=== PATIENT | male | born 1950 | race Caucasian/White ===

== ENCOUNTER → 2023-11-30 14:18 | Outpatient (REF) | payer MEDICARE, BC, SELFPAY ==
[2023-11-30 15:28] LABS: % Basophils 1.3 % (0-2); % Eosinophils 3.3 % (0-6); % Immature Granulocytes 0.3 % (0-0.5); % Lymphocytes 27.1 % (20.5-51.1); % Monocytes 11.6 % (1.7-9.3); % Neutrophils 56.4 % (42.2-75.2); Absolute Basophils 0.1 10^3/uL (0-0.2); Absolute Eosinophils 0.2 10^3/uL (0-0.7); Absolute Lymphocytes 1.6 10^3/uL (1.2-3.4); Absolute Monocytes 0.7 10^3/uL (0.1-0.6); Absolute Neutrophils 3.4 10^3/uL (1.4-6.5); Hematocrit 44.7 % (39.0-52.0); Hemoglobin 15.4 g/dL (13.0-18.0); Mean Corp Hgb Conc. 34.5 g/dL (33.0-37.0); Mean Corpuscular Hgb 32.2 pg (27.0-31.0); Mean Corpuscular Volume 93.5 fL (80.0-94.0); Mean Platelet Volume 10.8 fL (7.4-10.4); Nucleated Red Blood Cells % 0 % (-); Platelet Count 159 10^3/uL (130-400); Red Blood Cell Count 4.78 10^6/uL (4.70-6.10); Red Cell Dist. Width 12.6 % (11.5-14.5)
[2023-11-30 16:06] LABS: ALT (SGPT) 32 U/L (0-50); AST (SGOT) 33 U/L (17-59); Albumin 4.4 g/dl (3.5-5.0); Alkaline Phosphatase 70 U/L (38-126); Blood Urea Nitrogen 15 mg/dl (9-20); Calcium 9.9 mg/dl (8.4-10.2); Carbon Dioxide 28 mmol/L (22-30); Chloride 106 mmol/L (98-107); Glucose 81 mg/dl (70-99); Potassium 4.5 mmol/L (3.5-5.1); Sodium 139 mmol/L (135-145); Total Protein 6.6 g/dl (6.3-8.2); eGFR > 60.00
== END ==
LOC: REG 14:18
PROVIDERS: ATTENDING PHYSICIAN Internal Medicine Cardiovascular Disease; FAMILY PHYSICIAN Internal Medicine
DX: I42.8 Other cardiomyopathies (principal); I44.30 Unspecified atrioventricular block; J45.40 Moderate persistent asthma, uncomplicated; E78.5 Hyperlipidemia, unspecified; J44.9 Chronic obstructive pulmonary disease, unspecified
CPT/HCPCS: 36415; 80053; 85025

== ENCOUNTER 2023-12-01 06:29 | Day surgery (SDC) | payer MEDICARE, BC, SELFPAY ==
[2023-12-01] VITALS (16 sets, daily range): BP systolic 117–153; BP diastolic 58–99
[2023-12-01] MEDS: LOW STRENGTH ASPIRIN 81 MG PO (07:25)
[2023-12-01] MEDS: NSS 312 ML IV (07:26)
[2023-12-01] MEDS: VANCOCIN 300 ML IV (08:45)
[2023-12-01] MEDS: VANCOCIN 300 MG IV (08:45)
--- NOTE | 2023-12-01 08:52 | ITS.CL.CATH ---
[employer] - Catheterization
Cardiac Catheterization
Procedure Report:
LEFT HEART CATHETERIZATION
Date of Procedure: December 01, 2023
Referring: Dr. Fernandez Valentin
PROCEDURES:
1. Left heart catheterization with coronary and single-plane left ventriculography
INDICATION: 44 seconds of sustained ventricular tachycardia with self termination on 10/29/2023. History of PVCs and recovered cardiomyopathy. No chest pain. Plan potential upgrade of pacemaker to ICD with LV lead
ACCESS: Right radial artery, 6 Khmer sheath
HEMODYNAMICS : (mmHg)
AO (s/d) : 131/68
LV (s/d) : 136/15
LVEDP : 28
CORONARY FINDINGS
DOMINANCE: Left
LEFT MAIN: Normal
LEFT ANTERIOR DESCENDING: The LAD arises normally from the left main and has 30-40% proximal stenosis. Minor irregularities are present
CIRCUMFLEX: The circumflex is a large-caliber dominant vessel with a 60% proximal stenosis that appears angiographically stable. OM 2 is small. The circumflex continues as a large-caliber vessel in the AV groove giving rise to a small first
posterolateral branch and a larger second posterolateral branch. The PDA is a small to medium caliber vessel that is widely patent
RIGHT CORONARY ARTERY: Nondominant
VENTRICULOGRAPHY: Left ventriculography was performed in HERNANDEZ projection. The digital single-plane left ventricular ejection fraction is visually estimated at 30-35% with global hypokinesis
RADIATION SUMMARY: Fluoro Time (min): 4.8, Dose (mGy): 403, DAP (Gy.cm2) : 28.3
Closure Device: TR band
CONCLUSIONS
1. Stable coronary anatomy
2. Dilated cardiomyopathy with visually estimated ejection fraction of 30-35%
RECOMMENDATIONS
1. Dr. Valentin will review angiogram and discussed with patient and spouse regarding upgrade to ICD
Copy to: Dr. Fernandez Valentin
--- NOTE | 2023-12-01 09:10 | PTCARENOTE ---
Patient taken to EP Lab for BiV procedure. Report given to Semaj TREJO
[2023-12-01] MEDS: AZACTAM 2000 MG IV (09:29)
[2023-12-01] MEDS: STERILE WATER FOR INJECTION 10 ML IV (09:29)
--- NOTE | 2023-12-01 12:28 | ITS.CL.PACE ---
Public Policy Mediator - Pacemaker Implant
Pacemaker Implant
Procedure Report:
Date of Procedure: December 01, 2023
Patient : 1950
Procedure: Pocket revision, left subclavian access, venography of the left subclavian and innominate system
Indication: The patient presented for WALLET ASSEMBLER-D upgrade given recent 44 seconds of VT at 280 ms as well as a new drop in LV function at 35% diagnosed at left heart catheterization today. He has a history of dual-chamber pacemaker placed by Dr. Chicas
in 2018 initially with a 3830-lead in the His bundle position which demonstrated an elevated thresholds and a standard 5076-lead was placed.
�
Procedure report
Technique: A time out was performed. The procedure site was identified. The patient was anesthetized by the anesthesia service. Preoperative sedation was administered. The patient was prepped and draped in the usual fashion. Local anesthetic was
applied to the left prepectoral subcutaneous tissue. A 3 inch incision was made 2.5 inches below the left clavicle. The chronic pocket was opened and revised to accommodate the new generator.. The left axillary vein was accessed within the pocket
with some difficulty although we could gain access and advance a Terumo wire into the innominate system. Just prior to the SVC/RA junction approximately 1 to 2 cm proximal to this the Terumo wire had marked difficulty advancing. Eventually we were
able to pass the terminal wire between the 2 leads and into the right atrium and right ventricle. We then performed venography with a 6 Vincentian short sheath demonstrating an area of significant stenosis in this region with marked collaterals which
spiraled around the presumed stenosis. Attempts at dilating this stenosis were performed with a 6 Vincentian long dilator which could not advance past this area of stenosis except for the tip which then with further forward pressure brought both the
vessel and the leads along with it without any change in endocardial position.. Given the need for addition of an ICD lead as well as WALLET ASSEMBLER either in the coronary sinus or left bundle branch area position I felt that the addition of hardware would
put the patient at significant risk for SVC syndrome and given the stretching of the innominate system and leads with attempts at a 6 Vincentian short dilator that further instrumentation of this region could lead to perforation in this area. As such
we abandoned further attempts and we will refer him for extraction and reimplantation. It is also possible that he may need innominate or SVC stenting to allow the passage of 3 leads into the heart. The pursestring suture was placed after Terumo
removal with adequate hemostasis and the chronic pacemaker generator was tied to the floor of the pocket. The pocket was irrigated with antibiotic solution. The device and leads were placed in the revised pocket. The incision was closed in three
layers with absorbable suture. The estimated blood loss was minimal. There were no complications.��
There was no change in lead parameters at the beginning and the end of procedure.
�
Final Programming: DDDR 60-140 beats a minute
�
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
�
Recommendation: He was started on amiodarone last week for his sustained VT. He was counseled to stop his current alcohol use as it is likely a trigger for his depressed ejection fraction. Will increase Toprol to 25 mg daily and add lisinopril as
well as Jardiance to his regimen tomorrow. He will be evaluated for a LifeVest in the short-term. We will make an appointment with Dr. Barron in the office to evaluate for extraction. Family also requested a second opinion and I will reach out to
Dr. Jett at [facility] to review his venograms. Alternatively if the patient decides against extraction he can consider lifestyle modification without ICD although I did discuss with his that even if he improves his ejection fraction on
medications and lifestyle modification that he still has a sudden risk. A third option would be adding a subcutaneous ICD along with his dual-chamber pacemaker although there is a risk of device interaction.
�
--- NOTE | 2023-12-01 12:30 | PTCARENOTE ---
Patient is s/p left heart cath and failed upgrade of pacemaker.
Spoke with patient's about patient's ETOH habits. Per her, he drinks 'half a bottle of wine' per day. [facility].
--- NOTE | 2023-12-01 15:03 | CM ---
Priced Kaylene + Nazario thru patient's insurance, [employer] [phone]. Estimated cost of both medications are $40-45 (depending on whether he goes to a preferred pharmacy).
Pt. would be eligible for a free [address] coupon[address] in chart once medication is identified.
TT to LENNY to update.
--- NOTE | 2023-12-01 15:04 | CM ---
Addendum entered by YSABEL Wong 12/01/23 16:09:
LifeVest approved. [employer]/ [employer] hotel services supervisor, will be out to today to provide general teaching, etc to patient.
Original Note:
Rec'd consult for LifeVest. Gathered all necessary paperwork and faxed to Life[employer]est. Awaiting response.
--- NOTE | 2023-12-01 15:35 | CM ---
CM following for DC planning needs.
Met w/ patient at bedside to complete initial assessment.
Pt. indicates that he resides w/ spouse in a private, 2 story home but is maintained on the first level.
He is functionally indep. at baseline w/ ADLs, mobility without the use of any assisted device.
Reviewed estimated cost of Jardiance/ Farxiga; patient agreeable to estimated cost.
Reviewed LifeVest, pending approval. Pt. aware.
RN updated.
Plan is for home once stable w/ LifeVest if approved.
CM to follow.
--- NOTE | 2023-12-01 18:01 | W.PN.UPDATE ---
Update Note
Progress Note Update
CXR without pneumothorax
Due to be fitted with Lifevest tomorrow
If creatinine stable with start farxiga and lisinopril at DC tomorrow
Increased Toprol as ordered
Amiodarone 200mg bid x 1 month then daily
ETOH cessation
Scheduled for 12/[address] Barron
Spoke by phone with Dr. Jtet at [facility] (Patient and wanted a second opinion to aid in decision making) who will reach out to patient and I also forward venograms from today's case.
Patient and in full agreement re plan
[2023-12-01] MEDS: FLOVENT 44 MCG INHALER 2 PUFF INH (20:07)
[2023-12-01] MEDS: PACERONE 200 MG PO (20:20)
[2023-12-02 05:10] VITALS: BP 119/66
[2023-12-02 05:28] LABS: Hematocrit 40.9 % (39.0-52.0); Hemoglobin 14.5 g/dL (13.0-18.0); Mean Corp Hgb Conc. 35.5 g/dL (33.0-37.0); Mean Corpuscular Hgb 32.7 pg (27.0-31.0); Mean Corpuscular Volume 92.3 fL (80.0-94.0); Mean Platelet Volume 10.4 fL (7.4-10.4); Platelet Count 142 10^3/uL (130-400); Red Blood Cell Count 4.43 10^6/uL (4.70-6.10); Red Cell Dist. Width 12.4 % (11.5-14.5); White Blood Cell Count 13.6 10^3/uL (4.8-10.8)
--- NOTE | 2023-12-02 05:42 | PTCARENOTE ---
pt pleasant an cooperative. oob in roomm .denies pain or discomfort. pacer dressing dry and intact. pt av paced on monitor with frequent pvc's.
[2023-12-02 05:58] LABS: Blood Urea Nitrogen 18 mg/dl (9-20); Calcium 9.4 mg/dl (8.4-10.2); Carbon Dioxide 23 mmol/L (22-30); Chloride 107 mmol/L (98-107); Estimated Creatinine Clearance 81 ml/min; Glucose 122 mg/dl (70-99); HDL Cholesterol 55 mg/dl; LDL Cholesterol, Calculated 60 mg/dl; Magnesium 2.1 mg/dl (1.6-2.3); Potassium 4.9 mmol/L (3.5-5.1); Sodium 136 mmol/L (135-145); Total Cholesterol 127 mg/dl (50-199); Triglyceride 61 mg/dl (10-149); Very Low Density Lipoprotein 12 mg/dl (0-30); eGFR > 60.00
[2023-12-02 06:00] VITALS: BMI 29.5
[2023-12-02 07:25] VITALS: BP 127/66
[2023-12-02] MEDS: FLOVENT 44 MCG INHALER 2 PUFF INH (07:53)
[2023-12-02] MEDS: ZESTRIL 5 MG PO (08:42)
[2023-12-02] MEDS: PACERONE 200 MG PO (08:42)
[2023-12-02] MEDS: FARXIGA 10 MG PO (08:42)
[2023-12-02] MEDS: ASPIR LOW (ENTERIC COATED) 81 MG PO (08:43)
[2023-12-02] MEDS: TOPROL XL 25 MG PO (08:43)
[2023-12-02] MEDS: LIPITOR 20 MG PO (08:46)
--- NOTE | 2023-12-02 09:58 | PTCARENOTE ---
pt is AV paced on the monitor, hr in the 60s, vss. pt offers no complaints at this time. pt educated and given written material on new medications. lifevest education done by senior customer service representative. at bedside for education and both verbalized
understanding. call powell within reach.
--- NOTE | 2023-12-02 10:14 | W.PN.CARDCBS ---
Today's Communication / Plan
-
Discharge to home
Impression / Plan
-
Impression:
Nonsustained V. tach
Failed attempt to place ICD lead due to innominate/SVC stenosis 12/01/2023
Catheterization 12/01/2023 with stable coronary anatomy
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
History of paroxysmal atrial fibrillation
Status post Medtronic pacer implant
Plan:
Patient be discharged to home on LifeVest
Outpatient lead extraction is being arranged
Decision regarding ICD to be made after lead has been extracted
He has been cautioned to stop alcohol intake which may be a cause of his reduced ejection fraction
Toprol has been increased and lisinopril added as well as Jardiance
All follow-up has been arranged
Discussed with patient and in detail for 40 minutes including answering questions regarding his condition
Progress Note - Lowerator Operator
Subjective
Date of Service: December 02, 2023
No complaints.
Objective
Labs:
12/02/23 05:17
12/02/23 05:17
Labs
Hgb 14.5 g/dL (13.0-18.0) 12/02/23 05:17
Hct 40.9 % (39.0-52.0) 12/02/23 05:17
Plt Count 142 10^3/uL (130-400) 12/02/23 05:17
Sodium 136 mmol/L (135-145) 12/02/23 05:17
Potassium 4.9 mmol/L (3.5-5.1) 12/02/23 05:17
BUN 18 mg/dl (9-20) 12/02/23 05:17
Creatinine 1.0 mg/dL (0.7-1.3) 12/02/23 05:17
Glucose 122 mg/dl (70-99) H 12/02/23 05:17
Vital Signs and I&O:
Vital Signs
Temp Pulse Resp BP Pulse Ox
97.7 F 62 16 127/66 95
12/02/23 07:22 12/02/23 09:45 12/02/23 08:01 12/02/23 08:43 12/02/23 08:01
Vital Signs
Temp Pulse Resp BP Pulse Ox
97.7 F 62 16 127/66 95
12/02/23 07:22 12/02/23 09:45 12/02/23 08:01 12/02/23 08:43 12/02/23 08:01
Intake & Output
11/30/23 12/01/23 12/02/23 12/03/23
06:59 06:59 06:59 06:59
Intake Total 312 / 312 480 / 480
Balance 312 / 312 480 / 480
Physical Exam
Physical Exam
General: Well developed, well nourished in NAD.
Neck: Supple, no JVD, HJR, carotids +2 B/L, no bruits bilaterally.
Heart: Non displaced PMI, RRR, no murmurs, No S3, S4, no rubs.
Lungs: Clear to auscultation bilaterally, no wheeze, rhonchi, rubs bilaterally,
normal expiratory phase.
Extremities: No clubbing, cyanosis or edema bilaterally.
Neuro: Grossly nonfocal, awake, alert and oriented x3.
--- NOTE | 2023-12-02 10:45 | PTCARENOTE ---
read d/c instructions to pt and , both verbalized understanding. iv and tele removed. pt left via wheelchair with staff with belongings from room, wearing lifevest.
== END 2023-12-02 10:46 | disposition home or self-care (01) ==
LOC: CATH 06:29
PROVIDERS: Nurse Practitioner Adult Health; ATTENDING PHYSICIAN Internal Medicine Interventional Cardiology; FAMILY PHYSICIAN Internal Medicine
DX: I25.10 Atherosclerotic heart disease of native coronary artery without angina pectoris (principal); I47.20 Ventricular tachycardia, unspecified; Z86.79 Personal history of other diseases of the circulatory system; I42.0 Dilated cardiomyopathy; I42.8 Other cardiomyopathies; I49.3 Ventricular premature depolarization; I48.19 Other persistent atrial fibrillation; Z95.0 Presence of cardiac pacemaker; I44.2 Atrioventricular block, complete; J44.89 Other specified chronic obstructive pulmonary disease; Z85.46 Personal history of malignant neoplasm of prostate
CPT/HCPCS: 33264; 36005; 71045; 75820; 80048; 80061; 83735; 85027; 87070; 93005; 93306; 93458; 94640; C1769; C1887; C1892; C1894; Q9967

== ENCOUNTER → 2023-12-09 11:22 | Outpatient (REF) | payer MEDICARE, BC, SELFPAY ==
[2023-12-09 13:47] LABS: Blood Urea Nitrogen 19 mg/dl (9-20); Calcium 10.4 mg/dl (8.4-10.2); Carbon Dioxide 27 mmol/L (22-30); Chloride 104 mmol/L (98-107); Glucose 82 mg/dl (70-99); Potassium 5.5 mmol/L (3.5-5.1); Sodium 139 mmol/L (135-145); eGFR 52.41
== END ==
LOC: REG 11:22
PROVIDERS: ATTENDING PHYSICIAN Internal Medicine Cardiovascular Disease; FAMILY PHYSICIAN Internal Medicine
DX: I25.10 Atherosclerotic heart disease of native coronary artery without angina pectoris (principal)
CPT/HCPCS: 36415; 80048

== ENCOUNTER 2024-01-10 07:19 | Inpatient (IN) | payer MEDICARE, BC, SELFPAY ==
[2023-12-28 12:27] VITALS: BMI 28.4
[2023-12-28 13:09] LABS: INR 0.99; PT 12.9 Sec (11.4-14.6)
[2023-12-28 13:17] LABS: % Basophils 1.3 % (0-2); % Eosinophils 9.6 % (0-6); % Immature Granulocytes 0.2 % (0-0.5); % Lymphocytes 16.5 % (20.5-51.1); % Monocytes 12.5 % (1.7-9.3); % Neutrophils 59.9 % (42.2-75.2); Absolute Basophils 0.1 10^3/uL (0-0.2); Absolute Eosinophils 0.5 10^3/uL (0-0.7); Absolute Lymphocytes 0.9 10^3/uL (1.2-3.4); Absolute Monocytes 0.7 10^3/uL (0.1-0.6); Absolute Neutrophils 3.1 10^3/uL (1.4-6.5); Hematocrit 45.7 % (39.0-52.0); Hemoglobin 15.7 g/dL (13.0-18.0); Mean Corp Hgb Conc. 34.4 g/dL (33.0-37.0); Mean Corpuscular Hgb 33.3 pg (27.0-31.0); Mean Corpuscular Volume 96.8 fL (80.0-94.0); Mean Platelet Volume 10.3 fL (7.4-10.4); Nucleated Red Blood Cells % 0 % (-); Platelet Count 146 10^3/uL (130-400); Red Blood Cell Count 4.72 10^6/uL (4.70-6.10); Red Cell Dist. Width 12.2 % (11.5-14.5); White Blood Cell Count 5.2 10^3/uL (4.8-10.8)
[2023-12-28 13:56] LABS: ALT (SGPT) 69 U/L (0-50); AST (SGOT) 52 U/L (17-59); Albumin 4.5 g/dl (3.5-5.0); Alkaline Phosphatase 89 U/L (38-126); Blood Urea Nitrogen 21 mg/dl (9-20); Calcium 10.2 mg/dl (8.4-10.2); Carbon Dioxide 28 mmol/L (22-30); Chloride 106 mmol/L (98-107); Estimated Creatinine Clearance 55 ml/min; Glucose 84 mg/dl (70-99); Potassium 4.9 mmol/L (3.5-5.1); Sodium 141 mmol/L (135-145); Total Bilirubin 0.7 mg/dl (0.2-1.3); Total Protein 6.6 g/dl (6.3-8.2); eGFR 57.29
[2024-01-10] VITALS (21 sets, daily range): BP systolic 88–140; BP diastolic 52–85; BMI 27.3
--- NOTE | 2024-01-10 08:16 | PTCARENOTE ---
Admitted pt into 2265 for EP lab; pt AAOX3 and resting comfortably in bed; 100% AV paced on monitor and VSS; Pt confirmed 2 showers at home; NPO since 1899 on 01/09/24; IV and labs taken; updated pt and on plan of care; awaiting EP team for
procedure. ,
--- NOTE | 2024-01-10 08:45 | PTCARENOTE ---
Pt admitted with life vest, per Lois Vang MACHINE ROUGH ROUNDER ok to removed life vest and put on monitor.
[2024-01-10] MEDS: DUONEB 3 ML INH (09:28)
--- NOTE | 2024-01-10 10:22 | PTCARENOTE ---
Pt sent to EP Lab with RN and bedside report given; abx sent to EP lab.
--- NOTE | 2024-01-10 13:51 | ITS.CL.ICD ---
Car Rental Agent - ICD
Implantable Cardioverter Defibrillator
Procedure Report:
Extraction Procedure:
Laser Extraction of pacemaker system including extraction of RV pacing lead and placement of SENIOR HEALTH EDUCATOR-D (cardiac resynchronization therapy with defibrillator)
Mr. Vasquez is an 73 y/o, known to Dr. Valentin with h/o high burden of PVCs status post PVC induced cardiomyopathy and 3 prior ablations at [facility], [facility] and [facility] with still persistent PVCs as
history of sinus node ablation and complete heart block status post SENIOR HEALTH EDUCATOR with LV lead dysfunction status post extracted by Dr. Chicas, responded to SENIOR HEALTH EDUCATOR initially with recovery of LVEF from 30 to 45% has gone into sustained medical tachycardia with
now again dropped LVEF to 30% was taken to the lab for ICD upgrade and noted to have SVC occlusion and upgrade could not be done.� Patient presented today for extraction of the RV lead and upgrade to SENIOR HEALTH EDUCATOR/defibrillator.� Patient is pacemaker
dependent and has no underlying rhythm.
After long discussion among the providers and the patient and family, the plan was made to proceed with extraction of the existing pacemaker RV lead and re-implant a new SENIOR HEALTH EDUCATOR-D system
Indications:
Sustained VT and upgrade to SENIOR HEALTH EDUCATOR-D with systolic dysfunction.
Date of the Procedure: 01/10/2024
Pre-Operative Diagnosis: Sustained Ventricular tachycardia with and systolic heart failure and AV block
Post-Operative Diagnosis: Sustained Ventricular tachycardia with and systolic heart failure and AV block
Procedure Performed:
����������� RV PPM lead extraction
����������� ICD placement
����������� CS lead placement for SENIOR HEALTH EDUCATOR-D
�
Performing Physicians:
Rene Barron MD
Anesthesia:
See anesthesia records
Detailed Description of the Procedure:
Written informed consent was obtained from the patient after a full explanation of the risks and benefits of the procedure. The patient was brought to the lab in the fasting state. Prophylactic antibiotics were given prior to the start of the
procedure. Continuous electrocardiographic and hemodynamic monitoring was initiated.
The initial rhythm was V paced rhythm.
The PPM was programmed to VVI 40.
General anesthesia with intubation and mechanical conventional ventilation used. Anesthesia staff performed intubation monitored the patient during case. The ventral torso was meticulously prepared with surgical scrub and allowed to dry with no
pooling. Sterile draping was applied to cover the operative field. The image intensifier was draped with a sterile bag and positioned over the patient's chest.
A surgical pause was performed in accordance with hospital regulations.� Anesthesia service provided sedation as reported separately.� Antibiotics administered IV for risk of bacterial colonization.
Groin Prep and vascular access:
After infiltration with lidocaine, large bore venous access was established via the right and left femoral veins. An intra-arterial catheter was placed via the left femoral artery for emergency access.
Eendovascular occlusion balloon prep:
A 6 Fr sheath was placed and the guidewire was placed from the right femoral vein to the right IJ. A 12 Fr sheath was placed and the guidewire was placed from the right femoral vein to the right IJ. An inner sheath was used for the selectively
engaging the IJ. An endovascular occlusion balloon was advanced over the guidewire into the SVC. The balloon was inflated with 20% contrast and adequate occlusion of the SVC identified. The balloon was deflated and pulled down to the IVC.
Another 6 Fr sheath was placed in the left femoral vein for the anesthesia administration.
Temporary Pacemaker Placement:
A 6Fr temporary wire was placed in the left groin via a 6Fr sheath. The temp wire was advanced and placed in the RV with adequate threshold noted. The temp wire was placed at VVI 50.
It was removed under fluoroscopy guidance at the end of the case.
Pocket Exploration:
After infiltration with lidocaine, an incision was made in the left delto-pectoral groove over the previous scar. Using blunt dissection and electrocautery, the incision was carried down to the level of the device, being careful to maintain adequate
hemostasis and not disrupt the previously implanted leads. Fluoroscopy was performed with showed normal appearance of the existing leads and during the procedure. The generator was removed from the pocket. The leads were individually released from
the scar tissue and the fibrotic tissue was removed.
RV lead extraction:
The RV lead was removed from the generator. The RV lead was imaged and was noted to be attached to the RV apex. A stylet was advanced to the tip and the attempt was done to unscrew and the tip screw was not retracted inside the lead. The lead was
pulled but was not able to pull out.
Then the lead was clipped approximately 4 cm proximal to the entry site into the vein using lead cutting scissors.
The inner channel of the lead was sized and an EZ Lead Locking Device (LLD) was advanced into the lead. The LLD was able to reach to the tip of the PPM lead. The locking mechanism was engaged and the stylet was fixed in position in the lead. An
ETHICON SA8 2 Perma-hand Silk,black braided, 60inch was fixed to the proximal end of the lead to establish additional control.
A 14F nScaled Laser Sheath was tested using the [employer] HealthcareX-300 system and found to meet specifications. Under fluoroscopic guidance, tension was applied to the lead via the locking stylet and the suture. Along with an outer sheath, the laser sheath
was advanced over the pacing lead under fluoroscopic guidance until resistance was met. Laser energy was applied in up to 10-second bursts in regions of resistance allowing advancement of the sheaths under fluoroscopic guidance. Laser energy was
applied at the venous entry site, and in the subclavian vein. The laser was able to advance the sheath to the innominate vein. Once the laser cleared the subclavian occluded portion, the RV lead was freed and was able to come out of the RV to the
RA.
The innominate vein junction with SVC had another occlusion and lead was not able to move out of the SVC.
Then the 8Fr from the groin was upgraded to Agilis and Goose neck snare was placed. Now using the Goose neck snare the RV lead was snared from the groin access to provide a rail for the laser extraction. With the snare in place, the RV lead was
pulled and stabilized at the RA as an anchor for laser to clear the obstruction at the SVC junction.
Now using laser the sheath was able to enter the SVC over the pacemaker lead. Once the obstruction was crossed, the lead was removed from the snare and was able to bring it out of the body. The snare was removed from the body from the groin with
partial lead segment.
A long table wire was placed from the axillary vein to the IVC and long sheath was placed. Another long wire was placed in similar fashion for ICD and CS placement.
Then the attention was placed towards the re-implantation.
RV ICD placement:
Using the glidewire, the long 9Fr peelaway sheath was advanced into SVC. The right ventricular lead was placed at the RV apical septum with defibrillator coil well into the RV cavity and screwed in place with appropriate sensing and threshold.
Coronary sinus lead placement:
Attention turned to the coronary sinus. The guide wire was advanced to the IVC and a long hemostatic peel away sheath was advanced to the RA.
The CS was cannulated using radiofocus glidewire.
Using the glidewire, the long 9Fr peelaway sheath was advanced into the CS over a glidewire. Coronary sinus venography was obtained with a balloon catheter in the CS. ~4 cc contrast used. CS anatomy revealed a posterolateral (PL) branches. The
lateral PL branch was accessed using a Whisper wire. The quadripolar lead with active fixation was used and advanced into the posterolateral br over the whisper wire. During pacing, QRS complex was favorable, with a QS in lateral leads and RBBB
configuration during LV pacing.� It was deemed ideal for biventricular pacing.
The sheath was removed from the CS body without any movement of the CS lead.
The long guiding sheath was removed from the vein and then from the body without change in lead position, impedance, sensing, or capture. The lead was sutured to the underlying pectoralis fascia with 0-silk stitches.
The leads were attached to the pulse generator in standard configuration with acceptable sensing and threshold parameters. The pocket was irrigated with antibiotic solution; the pocket was inspected with no active bleeding noted. The device and the
leads were placed in the pocket. The pocket was adjusted to accept the new generator.
A Tyrx pouch was placed around the generator and the leads in the pocket.
Surgiflo was placed in the pocket.
Deep subcutaneous tissues were closed with 2-0 V-Loc sutures in 3 layers; and the dermis was reopposed using a running 4-0 V loc subcuticular suture. A pressure dressing was applied. Sponge counts / sharp counts were appropriate.
Procedure End:
The procedure was tolerated well. A bandage was applied to the incision area to be removed in a day. A pressure dressing was applied.
A pressure dressing was applied.
The temporary wire was removed under fluoroscopy guidance without any movement to the leads. The compliant balloon and the IJ wire was removed in the similar fashion.
The sheaths were removed from the groin. Figure of 8 suture was applied on the right groin and manual pressure applied to left access sites to achieve hemostasis. Anesthesia was reversed and the anesthesia staff extubated then observed the patient
until the return of pre-sedation mental status. The patient was transferred to the recovery area.
Estimated Blood loss:
20 cc
Specimens Removed:
Old generator and the pacing lead removed.
Urine output:
None
Packs / Drains/ Tubes:
None
Instrument / Sponge Count Correct:
Yes
Complications of the Procedure:
None
Condition of Patient at Time of Transfer:
Hemodynamically stable with no neurological or vascular compromise.
Explanted Device information: Explanted on 01/10/2024 (Initially implanted on 10/07/2017)
����������� Generator: ActiveRaintronic; Model # [id number], SN# [id number]
����������� RV lead: Medtronic; Model # 5076-58; Serial # [id number]
�����������
New Implanted Device information:
����������� Generator: Medtronic; Model: [id number]; Serial # [id number]
����������� Atrial Lead: Medtronic; Model: 4076�52; Serial # [id number]
����������������������� (originally implanted on 04/23/2017)
����������������������� Measured data in the right atrium was sensing of 2.4 mV and, impedance of 380 ohms and threshold of 0.75 V at 0.4ms
����������� RV Lead: Medtronic; Model: 6935M-62; Serial # [id number]
����������������������� Measured data on the RV lead was sensing of 10 mV of paced beats but no [place] sensing, impedance of 513 ohms and threshold of 0.5 V at 0.4ms
����������� LV pacing lead: Medtronic; Model: 4798 -88; Serial # [id number]
����������������������� Measured data on the LV lead was impedance of 760 ohms and threshold of 0.5V at 0.4ms (LV1 to LV2; diaphragm not seen at max output).
PROGRAMMING PARAMETERS:
Martinez parameter settings were DDDR 60-130�
����������� Paced AV interval: 130ms
����������� Sensed AV interval: 100 ms.
�����������
Tachy parameter settings:
����������� VT zone:
����������������������� Slow VT: 150-167 bpm - Monitor
����������������������� Fast VT: 167-188 bpm � ATP then Shock
����������������������� VF: >188bpm� Shock� x6 �- ATP while charging.
�
Summary:
Successful implantation of MRI compatible Medtronic SENIOR HEALTH EDUCATOR-D after successful extraction of the right ventricular pacemaker system in pacemaker dependent patient.
Results/Recommendations:
1-Please follow up CXR and ECHO
2. Please Admit to CVICU for observation.
�
Rene Barron MD [facility]
Electrophysiology
�
--- NOTE | 2024-01-10 14:19 | W.ICD.CONTRA ---
Post ICD/JAVASCRIPT APPLICATION DEVELOPER-D
-
History of WI?: No
LV Function
Left ventricular function study result?: Ejection Fraction >35% - <40%
ACEI/ARB/ARNI
Patient already on ACEI/ARB/ARNI: Yes
Beta-Ajay
Patient already on Beta Ajay: Yes
[2024-01-10] MEDS: AZACTAM 2000 MG IV (14:53)
[2024-01-10] MEDS: STERILE WATER FOR INJECTION 10 ML IV (14:53)
[2024-01-10] MEDS: VANCOCIN 300 ML IV (14:53)
[2024-01-10] MEDS: VANCOCIN 300 MG IV (14:53)
[2024-01-10 14:54] LABS: Hematocrit 39.5 % (39.0-52.0)
--- NOTE | 2024-01-10 14:54 | CON.INTV ---
Consultation
Consultation Request
Date/Time Consultation Requested: 01/10/24
Date/Time Consultation Performed: 01/10/24
Performing Provider: Rocio
Reason for Consultation: CVICU
Medical History
-
History of Present Illness:
Patient is a 73-year-old male with known to Dr. 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 He is transferred to CVICU postop for observation.
Past Medical History
Past Medical History: Other (see list below)
Allergies / Home Medications
Allergies
Allergy/AdvReac Type Severity Reaction Status Date / Time
Penicillins Allergy Rash Verified 12/01/23 06:46
Home Medications
�Medication �Instructions �Recorded �Confirmed �Last Taken �Type
atorvastatin 20 mg tablet 20 mg PO DAILY High cholesterol 03/15/19 01/10/24 01/09/24 08:00 History
budesonide 180 mcg/actuation 180 mcg inhalation R BID 03/15/19 01/10/24 01/09/24 20:00 History
breath activated powder inhaler Lung/breathing issues
(Pulmicort Flexhaler)
multivitamin (One Daily 1 ea PO DAILY Supplement 03/15/19 01/10/24 01/09/24 08:00 History
Multivitamin oral powder packet)
amiodarone 200 mg tablet 200 mg PO Daily 12/01/23 01/10/24 01/09/24 08:00 History
aspirin 81 mg tablet,delayed 81 mg PO DAILY 12/01/23 01/10/24 01/09/24 08:00 History
release
dapagliflozin propanediol 10 mg 10 mg PO DAILY #90 tabs 12/01/23 01/10/24 01/07/24 08:00 Rx
tablet (Farxiga)
lisinopril 5 mg tablet 5 mg PO DAILY #90 tabs 12/01/23 01/10/24 01/09/24 08:00 Rx
metoprolol succinate 25 mg 25 mg PO DAILY #1 tab 12/01/23 01/10/24 01/09/24 08:00 Rx
tablet,extended release 24 hr
budesonide 180 mcg/actuation 2 inh inhalation BID 01/10/24 01/10/24 01/09/24 20:00 History
breath activated powder inhaler
Review of Systems
-
History Source: Patient
All other systems: Negative unless noted
Vitals / Labs / Diagnostic Testing
Vital Signs
Temp Pulse Resp BP Pulse Ox
97.4 F 61 12 115/65 97
01/10/24 14:27 01/10/24 14:27 01/10/24 14:27 01/10/24 14:25 01/10/24 14:27
Lab Data
01/10/24 14:47
12/28/23 12:38
Diagnostic Testing:
Physical Exam
-
HEENT: Normocephalic, Anicteric and Moist Mucous Membranes
Cardiovascular: S1/S2 and Regular Rhythm
Respiratory: Clear and Non-Labored Respirations
GI: Soft, Non Distended and Non Tender
Neurology: Awake, Alert, Oriented, AO x 3 and No Motor Deficits
Skin: Warm, Dry and Good Color
General: Comfortable and Other (NAD)
Assessment
-
Patient is a 73-year-old male with known to Dr. 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 He is transferred to CVICU postop for observation.
Sustained Ventricular tachycardia c/b systolic heart failure and AV block s/p Laser Extraction of pacemaker system including extraction of RV pacing lead and placement of MOTOR BUS DRIVER-D (cardiac resynchronization therapy with defibrillator) 01/10/24
Refractory PVCs
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
PVC's - symptomatic, multiple ablation attempts, one complicated by complete heart block
Multiple cardiac catheterizations/ablations - ([facility] 2015, [place] 2017, [place] 2018)
PPM Placement (s/p unintentional SA node ablation) 2016 at [facility]
Dyslipidemia
Colon polyps
Moderate persistent asthma
Follows with Dr Timmons
FEV1 2.42L 70%, peak flow 450L/min
FeNO 18-22, IgE 43
Seasonal allergic rhinitis
Prostate cancer s/p Robotic Prostatectomy ([facility]) 10/2012
Appendectomy 1958
Bilateral Cataract Extractions / IOL Placement 2015
Right Inguinal Herniorrhaphy 2018 08/2017
Vasectomy 1991
Hemorrhoid procedure
Mohs L syed for basal cell 08/2023
Plan
S/p RV pacing lead extraction, MOTOR [employer] DRIVER-D placement POD #0
Doing well, pain is minimal
ECHO reviewed with low/normal function
Cards following
Pain control
RASS goal of 0
History of asthma, not in exacerbation, lungs are clear
CXR with no acute findings
Resume home inhalers
Advance diet as tolerated per team
Aspiration precautions
Encouraged incentive spirometry, OOB/ambulation/early mobility
GI PPx if indicated
Monitor critical I/O's
Arias/chest tube output
Hb/platelets postoperatively stable
Trend CBC for now
Can transfuse if indicated for Hb <7, plt <50 in surgical patients
DVT prophylaxis including SCDs
We will follow
Diagnostic Data
Chest X-Ray: 01/10/24- Status post removal and replacement of left chest wall pacemaker/AICD. No evidence for pneumothorax.
12/28/23- No active cardiopulmonary disease.
CT Scan:
Echo: 12/01/23- 1. Left ventricle: Mild to moderately reduced left ventricular systolic function and estimated ejection fraction of 35-40%. Mild concentric LVH
2. Right ventricle: Normal
3. Atria: Normal
4. Mitral valve: Mild mitral regurgitation
5. Aortic valve: Mildly thickened with mild aortic insufficiency
6. Tricuspid valve: Mild tricuspid regurgitation with estimated pulmonary artery systolic pressures of 20-25 mmHg
7. When compared to the most recent echocardiogram from 03/11/2021 the LVEF is now visually estimated at 35-40% and was estimated at 44% on the prior study.
[facility] 12/01/23- CONCLUSIONS
1. Stable coronary anatomy
2. Dilated cardiomyopathy with visually estimated ejection fraction of 30-35%
PFT's:
Reports and relevant images were personally reviewed.
-----
Critical Care time 50 mins -- The patient is admitted for acute critical illness for the treatment of vital organ failure and/or prevention of further life-threatening conditions. Total care includes time spent in review of history, physical exam,
medications, hemodynamic/ventilator parameters, laboratory data, imaging and discussion with house staff, pharmacy, respiratory therapy, draw machine operator, and nursing.
--- NOTE | 2024-01-10 15:45 | PTCARENOTE ---
Patient received from EP lab s/p lead extraction/Bi-V ICD placement. V-paced via cm, SaO2 @ 97% on 4lnc. R radial arterial line present - leveled, flushed, and calibrated w/good waveform returned. B/L procedural groin sites stable, CDI, no
ecchymosis or hematomas noted, distal pulses palp. Arias catheter to gravity. Dr. Barron to bedside, updated to status. EKG performed, pcxr obtained, labs sent. to bedside, patient and spouse updated to plan of care for the afternoon, in
agreement. See work list for full assessment and interventions performed.
--- NOTE | 2024-01-10 16:04 | PTCARENOTE ---
Physician notified patient SBP running 90's sustained. To bedside. No new orders.
[2024-01-10] MEDS: NSS 500 IV (20:29)
--- NOTE | 2024-01-10 21:14 | PTCARENOTE ---
assumed care of patient @ 1900. received pt sitting in chair, AOx3. BP soft, asymptomatic, conversation with Dr. Mendez - 500 Saline ordered and given. BP improving. V paced with ocasional AV pacing with frequent PVCs. Lungs clear, satting high 90s
on room air. Belly benign. Voided 150 in urinal. B/L groins CDI soft. L chest wall aquacel CDI. arm in sling. R AC PIV patent. assisted pt to bed, resting comfortably with call powell within reach .
--- NOTE | 2024-01-10 23:12 | PTCARENOTE ---
BP improved after fluid bolus. resting comfortably, no change in assessment .
[2024-01-11] VITALS (12 sets, daily range): BP systolic 96–114; BP diastolic 45–76; BMI 27.3
--- NOTE | 2024-01-11 05:00 | PTCARENOTE ---
labs drawn and sent , ekg completed, pt stood to scale and then chair. resting comfortably with call powell within reach . no change in assessment
[2024-01-11 05:23] LABS: Hematocrit 38.9 % (39.0-52.0); Hemoglobin 13.8 g/dL (13.0-18.0); Mean Corp Hgb Conc. 35.5 g/dL (33.0-37.0); Mean Corpuscular Hgb 32.7 pg (27.0-31.0); Mean Corpuscular Volume 92.2 fL (80.0-94.0); Mean Platelet Volume 9.8 fL (7.4-10.4); Platelet Count 173 10^3/uL (130-400); Red Blood Cell Count 4.22 10^6/uL (4.70-6.10); Red Cell Dist. Width 12.3 % (11.5-14.5); White Blood Cell Count 11.9 10^3/uL (4.8-10.8)
[2024-01-11 05:45] LABS: Blood Urea Nitrogen 20 mg/dl (9-20); Calcium 9.4 mg/dl (8.4-10.2); Carbon Dioxide 22 mmol/L (22-30); Chloride 109 mmol/L (98-107); Estimated Creatinine Clearance 72 ml/min; Glucose 133 mg/dl (70-99); Sodium 135 mmol/L (135-145); eGFR > 60.00
--- NOTE | 2024-01-11 07:42 | W.PN.ANS.POP ---
Anesthesia Post Operative
- Anesthesia Post Op Note
Vital Signs Stable-See Nursing Note: Yes
Airway Patent: Yes
Adequate Pain Control: Yes
Change in Mental Status: No
Current Postoperative Nausea & Vomiting: No
Anesthesia Complications: No
General Anesthetic Recall: No
Unplanned Admission: No
Post Op Hydration Adequate: Yes
--- NOTE | 2024-01-11 08:45 | PTCARENOTE ---
Assumed care of patient. Pt assessed while he was sitting in the chair. Pt alert and oriented x4. Pt denies pain, shortness of breath, and nausea. MACIEL with equal strength throughout. Ambulates independently in the room. AV paced/vpaced with PVCs on
tele with rates in the 70s via PPM. BP stable 114/70. Bilateral radial and DP pulses palpable. No edema noted. POX 94% on RA. Lungs clear throughout. Occasional clear productive cough. Abdomen soft, nontender. C/o constipation, Dr. Barron notified
and pt requesting miralax, awaiting orders. Pt voiding in the bathroom, reports no issues. Right groin puncture site soft, dressing CDI. Left groin puncture site soft, dressing CDI. Left upper chest wall site soft and Aquacel dressing CDI. Right AC
and Left AC PIVs intact. See MAR for medication administration. See worklist for complete nursing assessment. Plan of care reviewed and patient in agreement.
[2024-01-11 08:55] LABS: Glucose - Point of Care 137 mg/dl (70-99)
--- NOTE | 2024-01-11 08:55 | W.PN.CD ---
Today's Communication / Plan
-
-Limited echo today to rule out pericardial effusion
-Likely discharge home today.
Impression / Plan
-
Mr. Vasquez is an 73 y/o, known to Dr. Valentin with h/o high burden of PVCs status post PVC induced cardiomyopathy and 3 prior PVC ablations with still persistent PVCs as history of sinus node ablation and complete heart block status post [employer]PE[employer] with
LV lead dysfunction status post extracted by Dr. Chicas, responded to [employer]PE[employer] initially with recovery of LVEF from 30 to 45% has gone into sustained medical tachycardia with now again dropped LVEF to 30% s/p RV pacer lead extraction and upgrade to
SUPERVIS[employer] INSPECTION-D with ICD and CS lead placement.
Status post extraction
-Status post laser extraction of the pacemaker lead.
-SVC/innominate vein occlusion.
-Status post laser resection and upgrade to SUPER[employer]PECTION-D.
-Arterial line removed yesterday.
-Blood pressure is soft. Will hold lisinopril today.
-Will obtain an echocardiogram.
-Postextraction hemoglobin was stable.
-No significant complications noted. Expected possible discharge today.
Ventricular tachycardia
-Sustained VT. Status post pacemaker extraction and upgrade to ICD.
-Frequent PVCs noted.
-Continue amiodarone and metoprolol.
-Plan for PVC/VT ablation as an outpatient. -Weight 3 months after the knee implant.
Nonischemic cardiomyopathy
-LVEF 30%
-Likely PVC induced cardiomyopathy.
-Responded well to SUPER[employer]PECTION in the past.
-Now status post SUPER[employer]PECTION�D
-Frequent PVCs are likely going to be inhibitory for SU[employer]PE[employer]. Once PVCs are ablated, the benefit of SUPER[employer] INSPECTION could be fully recognized.
Physical Exam
Vital Signs/Labs
Vital Signs
Temp Pulse Resp BP Pulse Ox
98.2 F 77 16 104/61 95
01/11/24 05:00 01/11/24 07:37 01/11/24 07:37 01/11/24 05:00 01/11/24 07:37
01/10/24 01/11/24 01/12/24
06:59 06:59 06:59
Actual Weight 93.8 kg
01/11/24 05:10
01/11/24 05:10
PT 12.9 Sec (11.4-14.6) 12/28/23 12:38
INR 0.99 12/28/23 12:38
Physical Exam
Constitutional: No acute distress and Comfortable
EENT: Anicteric and Moist mucous membranes
Cardiovascular: Rhythm & rate is regular (Frequent PVCs sometimes makes it rhythm irregular), Pedal edema is absent, JVD pressure is normal and Diastolic murmur present
Respiratory: Respiratory effort normal, Lungs clear to auscul., Crackles Absent and Rhonchi Absent
GI: Soft, Non tender and Normal bowel sounds
Neuro/Psych: Alert, Oriented and AO x 3
Data Reviewed
-
Date of Service: January 11, 2024
Medical Decision Making: Reviewed Test Results, Independent Historian Assessment and Test Interpretation
EKG: Tracing Personally Visualized and interpreted
Echo: Report Reviewed by me
X-Ray/CT/US/MRI/NUC/PET: Image Personally Visualized and interpreted
Labs: Labs Reviewed by me
Old Records: Reviewed
Critical Care Time (in minutes): 31
[2024-01-11] MEDS: FARXIGA 10 MG PO (08:58)
[2024-01-11] MEDS: LIPITOR 20 MG PO (08:58)
[2024-01-11] MEDS: ASPIR LOW (ENTERIC COATED) 81 MG PO (08:58)
[2024-01-11] MEDS: PACERONE 200 MG PO (08:58)
[2024-01-11] MEDS: TOPROL XL 25 MG PO (09:01)
[2024-01-11] MEDS: FLUSH (NSS) 1 FLUSH IV (09:02)
--- NOTE | 2024-01-11 11:32 | W.DS.TRANS ---
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
-
Discharge Instructions:
Sleep Apnea Risk Intermediate
Discharge Diagnosis/Procedures RV lead extraction, with two new leads and Bi-V
ICD upgrade
Diet Low Cholesterol,Low Sodium
Driving Restrictions No driving for 1 week
Bathing Restrictions OK to Shower
Instructions:
Stand-Alone Forms: DC Inst - Implanted Device
Changes to Home Medications: No
Discharge Medications:
DC Medications w/original date entered in [facility]
atorvastatin 20 mg tablet 20 mg PO DAILY High cholesterol 03/15/19
budesonide 180 mcg/actuation breath activated powder inhaler (Pulmicort Flexhaler) 180 mcg inhalation R BID Lung/breathing issues 03/15/19
multivitamin (One Daily Multivitamin oral powder packet) 1 ea PO DAILY Supplement 03/15/19
amiodarone 200 mg tablet 200 mg PO Daily Heart Disease/Condition 12/01/23
aspirin 81 mg tablet,delayed release 81 mg PO DAILY Blood Clot Prevention/Tx 12/01/23
dapagliflozin propanediol 10 mg tablet (Farxiga) 10 mg PO DAILY #90 tabs 12/01/23
lisinopril 5 mg tablet 5 mg PO DAILY #90 tabs 12/01/23
metoprolol succinate 25 mg tablet,extended release 24 hr 25 mg PO DAILY #1 tab 12/01/23
budesonide 180 mcg/actuation breath activated powder inhaler 2 inh inhalation BID Lung/Breathing Issues 01/10/24
Home Medication Changes
Pending Results: No
--- NOTE | 2024-01-11 12:52 | PTCARENOTE ---
Discharge order received. Pt's at bedside. PIV x2 d/c. All instructions reviewed. Pt states understanding. VSS.
--- NOTE | 2024-01-12 10:01 | CM ---
pt isprev indep,lives with his in a 2 story home. no dc planning needs noted.
== END 2024-01-11 13:17 | disposition home or self-care (01) | DRG 277 ==
LOC: CVICU 07:19
PROVIDERS: Nurse Practitioner; ADMITTING PHYSICIAN Internal Medicine Cardiovascular Disease; CONSULT PHYSICIAN Internal Medicine; FAMILY PHYSICIAN Internal Medicine
PROC: 02H43KZ Insertion of Defibrillator Lead into Coronary Vein, Percutaneous Approach (ICD-10-PCS; 2024-01-10)
PROC: 0JPT0PZ Removal of Cardiac Rhythm Related Device from Trunk Subcutaneous Tissue and Fascia, Open Approach (ICD-10-PCS; 2024-01-10)
PROC: 02HK3KZ Insertion of Defibrillator Lead into Right Ventricle, Percutaneous Approach (ICD-10-PCS; 2024-01-10)
PROC: 02PA3MZ Removal of Cardiac Lead from Heart, Percutaneous Approach (ICD-10-PCS; 2024-01-10)
PROC: 0JH609Z Insertion of Cardiac Resynchronization Defibrillator Pulse Generator into Chest Subcutaneous Tissue and Fascia, Open Approach (ICD-10-PCS; 2024-01-10)
DX: Z45.02 Encounter for adjustment and management of automatic implantable cardiac defibrillator (principal); I42.8 Other cardiomyopathies; I44.2 Atrioventricular block, complete; I82.210 Acute embolism and thrombosis of superior vena cava; I47.20 Ventricular tachycardia, unspecified; I87.1 Compression of vein; I50.22 Chronic systolic (congestive) heart failure; E78.5 Hyperlipidemia, unspecified; J45.40 Moderate persistent asthma, uncomplicated; J44.89 Other specified chronic obstructive pulmonary disease; Z79.82 Long term (current) use of aspirin; Z79.899 Other long term (current) drug therapy; Z85.46 Personal history of malignant neoplasm of prostate
CPT/HCPCS: 93308; 33225; 33233; 33235; 33249; 36415; 71045; 71046; 80048; 80053; 82962; 85014; 85018; 85025; 85027; 85610; 86850; 86900; 86901; 86920; 87070; 93005; 94640; C1766; C1769; C1777; C1882; C1887; C1892; C1894; C1900

== ENCOUNTER → 2024-03-14 11:48 | Outpatient (REF) | payer MEDICARE, BC, SELFPAY ==
[2024-03-14 15:06] LABS: % Basophils 1.6 % (0-2); % Eosinophils 4.6 % (0-6); % Immature Granulocytes 0.5 % (0-0.5); % Monocytes 10.9 % (1.7-9.3); % Neutrophils 58.4 % (42.2-75.2); Absolute Basophils 0.1 10^3/uL (0-0.2); Absolute Eosinophils 0.3 10^3/uL (0-0.7); Absolute Lymphocytes 1.4 10^3/uL (1.2-3.4); Absolute Monocytes 0.6 10^3/uL (0.1-0.6); Absolute Neutrophils 3.3 10^3/uL (1.4-6.5); Hematocrit 50.7 % (39.0-52.0); Hemoglobin 16.9 g/dL (13.0-18.0); Mean Corp Hgb Conc. 33.3 g/dL (33.0-37.0); Mean Corpuscular Hgb 33.1 pg (27.0-31.0); Mean Corpuscular Volume 99.2 fL (80.0-94.0); Mean Platelet Volume 10.8 fL (7.4-10.4); Nucleated Red Blood Cells % 0 % (-); Platelet Count 153 10^3/uL (130-400); Red Blood Cell Count 5.11 10^6/uL (4.70-6.10); Red Cell Dist. Width 13.1 % (11.5-14.5); White Blood Cell Count 5.6 10^3/uL (4.8-10.8)
[2024-03-14 15:33] LABS: ALT (SGPT) 38 U/L (0-50); AST (SGOT) 38 U/L (17-59); Albumin 4.8 g/dl (3.5-5.0); Alkaline Phosphatase 64 U/L (38-126); Blood Urea Nitrogen 19 mg/dl (9-20); Carbon Dioxide 27 mmol/L (22-30); Chloride 104 mmol/L (98-107); Glucose 73 mg/dl (70-99); Potassium 4.7 mmol/L (3.5-5.1); Sodium 144 mmol/L (135-145); Total Bilirubin 0.9 mg/dl (0.2-1.3); Total Protein 7.1 g/dl (6.3-8.2); eGFR > 60.00
[2024-03-14 15:46] LABS: Erythrocyte Sed Rate 11 mm/hour (0-20)
== END ==
LOC: REG 11:48
PROVIDERS: FAMILY PHYSICIAN Internal Medicine
DX: R10.11 Right upper quadrant pain (principal); R10.12 Left upper quadrant pain
CPT/HCPCS: 36415; 80053; 85025; 85652

== ENCOUNTER → 2024-03-15 07:21 | Outpatient (REF) | payer MEDICARE, BC, SELFPAY | LOC: RAD 07:21 | PROVIDERS: FAMILY PHYSICIAN Internal Medicine | DX: R10.11 Right upper quadrant pain (principal); R10.12 Left upper quadrant pain | CPT/HCPCS: 74177; Q9967 ==

== ENCOUNTER → 2024-04-19 07:09 | Outpatient (REF) | payer MEDICARE, BC, SELFPAY ==
[2024-04-19 09:38] LABS: HDL Cholesterol 74 mg/dl; LDL Cholesterol, Calculated 62 mg/dl; Total Cholesterol 151 mg/dl (50-199); Triglyceride 78 mg/dl (10-149); Very Low Density Lipoprotein 15 mg/dl (0-30)
[2024-04-19 09:40] LABS: PSA, Total - Diagnostic < 0.06 ng/ml (0.0-4.0)
== END ==
LOC: REG 07:09
PROVIDERS: ATTENDING PHYSICIAN Internal Medicine; OTHER PHYSICIAN Internal Medicine Cardiovascular Disease
DX: E78.5 Hyperlipidemia, unspecified (principal); C61 Malignant neoplasm of prostate
CPT/HCPCS: 36415; 80061; 84153

== ENCOUNTER → 2024-07-12 08:15 | Outpatient (REF) | payer MEDICARE, BC, SELFPAY | LOC: RCS 08:15 | PROVIDERS: ATTENDING PHYSICIAN Internal Medicine Cardiovascular Disease; FAMILY PHYSICIAN Internal Medicine | DX: I44.30 Unspecified atrioventricular block (principal) | CPT/HCPCS: 93306 ==

== ENCOUNTER → 2024-12-28 07:02 | Outpatient (REF) | payer MEDICARE, BC, SELFPAY ==
[2024-12-28 07:35] LABS: B.E. -1.4 mmol/L; HCO3 22.9 mmol/L (21-28); O2 Saturation % 98.4 % (94-98); PCO2 37 mmHg (35-48); PO2 87 mmHg (83-108)
[2024-12-28 08:43] LABS: ALT (SGPT) 36 U/L (0-50); AST (SGOT) 33 U/L (17-59); Albumin 4.5 g/dl (3.5-5.0); Alkaline Phosphatase 71 U/L (38-126); Blood Urea Nitrogen 14 mg/dl (9-20); Calcium 9.5 mg/dl (8.4-10.2); Carbon Dioxide 28 mmol/L (22-30); Chloride 108 mmol/L (98-107); Glucose 93 mg/dl (70-99); Potassium 4.9 mmol/L (3.5-5.1); Sodium 142 mmol/L (135-145); Total Protein 6.6 g/dl (6.3-8.2); eGFR > 60.00
[2024-12-28 09:09] LABS: TSH 1.91 uIU/ml (0.47-4.68)
== END ==
LOC: REG 07:02
PROVIDERS: ATTENDING PHYSICIAN Internal Medicine Cardiovascular Disease; FAMILY PHYSICIAN Internal Medicine
DX: I49.3 Ventricular premature depolarization (principal); I44.30 Unspecified atrioventricular block; I42.8 Other cardiomyopathies; Z79.899 Other long term (current) drug therapy
CPT/HCPCS: 36415; 36600; 80053; 82805; 84443

== ENCOUNTER → 2025-05-02 09:03 | Outpatient (REF) | payer MEDICARE, BC, SELFPAY ==
[2025-05-02 09:54] LABS: Hematocrit 50.9 % (39.0-52.0); Hemoglobin 17.4 g/dL (13.0-18.0); Mean Corp Hgb Conc. 34.2 g/dL (33.0-37.0); Mean Corpuscular Volume 97.9 fL (80.0-94.0); Nucleated Red Blood Cells % 0 % (-); Platelet Count 149 10^3/uL (130-400); Red Cell Dist. Width 12.9 % (11.5-14.5)
[2025-05-02 10:49] LABS: ALT (SGPT) 38 U/L (0-50); AST (SGOT) 36 U/L (17-59); Albumin 4.4 g/dl (3.5-5.0); Alkaline Phosphatase 80 U/L (38-126); Blood Urea Nitrogen 15 mg/dl (9-20); Calcium 10.0 mg/dl (8.4-10.2); Carbon Dioxide 30 mmol/L (22-30); Chloride 107 mmol/L (98-107); Glucose 90 mg/dl (70-99); HDL Cholesterol 61 mg/dl; LDL Cholesterol, Calculated 85 mg/dl; Potassium 4.8 mmol/L (3.5-5.1); Sodium 140 mmol/L (135-145); Total Protein 6.7 g/dl (6.3-8.2); Very Low Density Lipoprotein 10 mg/dl (0-30); eGFR > 60.00
[2025-05-02 11:02] LABS: TSH 1.25 uIU/ml (0.47-4.68)
== END ==
LOC: REG 09:03
PROVIDERS: ATTENDING PHYSICIAN Internal Medicine
DX: C61 Malignant neoplasm of prostate (principal); E78.5 Hyperlipidemia, unspecified; I25.5 Ischemic cardiomyopathy
CPT/HCPCS: 36415; 80053; 80061; 84439; 84443; 85025